=== PATIENT | male | born 1935 | race Asian ===

== ENCOUNTER 2017-05-02 05:48 | Day surgery (SDC) | payer OTHER ==
[~2017-05-02] VITALS: Ht 170.2 cm; Wt 69.5 kg
[~2017-05-02 05:48] MED LIST: ALBU8.5H8 IH; FLUT16H NASAL; SIMV10TA6 PO; [UNRECOGNIZED DRUG - REMARK] PO
[2017-05-02] MEDS ORDERED: LIDOCAINE HCL 2% 5 ML JELLY TP ONE (05:49)
[2017-05-02] MEDS ORDERED: LIDOCAINE HCL 4% 50 ML SOLUTION TP ONE (05:49)
[2017-05-02] MEDS ORDERED: ALBUTEROL SULFATE 2.5 MG/0.5 ML NEB SOLUTION NEB ONE (05:49)
[2017-05-02] MEDS ORDERED: BENZOCAINE 20% 50 MCG/SPRAY 57 GM TP ONE (05:49)
[2017-05-02] MEDS ORDERED: SODIUM CHLORIDE 0.9% 1,000 ML IV ONE ×2 (05:59→06:00)
[2017-05-02] MEDS ORDERED: FINA5TAB41 PO (06:55)
[2017-05-02] MEDS ORDERED: SIMV-259 PO (06:55)
[2017-05-02] MEDS ORDERED: DOCU250C91 PO (06:55)
[2017-05-02] MEDS ORDERED: MONT10TA21 PO (06:55)
[2017-05-02] MEDS ORDERED: TAMS0.4C32 PO (06:55)
[2017-05-02] MEDS ORDERED: NAPR-58 PO (06:55)
[2017-05-02] MEDS ORDERED: GABA-529 PO (06:55)
[2017-05-02] MEDS ORDERED: BENA1TAB17 PO (06:55)
[2017-05-02] MEDS ORDERED: D-ME118S13 PO (06:55)
[2017-05-02] MEDS ORDERED: ESCI10TA PO (06:55)
[2017-05-02] MEDS ORDERED: POSA100T PO (06:55)
[2017-05-02] MEDS ORDERED: BACL10TA PO (06:55)
[2017-05-02] MEDS ORDERED: DONE10TA8 PO (06:55)
[2017-05-02] MEDS ORDERED: OS500 PO (06:55)
[2017-05-02] MEDS ORDERED: FentaNYL CITRATE-PF 100 MCG/2 ML VIAL ONE (07:27)
[2017-05-02] MEDS ORDERED: MIDAZOLAM HCL 2 MG/2 ML VIAL ONE (07:27)
[2017-05-02] MEDS ORDERED: MethylPREDNISolone SOD SUCC 125 MG/2 ML VIAL IVP ONE (08:45)
[2017-05-02] MEDS ORDERED: MethylPREDNISolone SOD SUCC 125 MG/2 ML VIAL ONE (08:54)
[2017-05-02] MEDS ORDERED: OXYGEN THERAPY IH SCH (20:00)
== END 2017-05-02 11:07 | disposition home or self-care (01) ==
LOC: SURGERY 05:48
PROVIDERS: ATTEND Internal Medicine Critical Care Medicine
DX: J38.4 Edema of larynx (principal); B37.0 Candidal stomatitis; J44.9 Chronic obstructive pulmonary disease, unspecified; E78.00 Pure hypercholesterolemia, unspecified; F32.9 Major depressive disorder, single episode, unspecified; M19.90 Unspecified osteoarthritis, unspecified site; K21.9 Gastro-esophageal reflux disease without esophagitis; Z87.891 Personal history of nicotine dependence; Z98.890 Other specified postprocedural states; Z79.899 Other long term (current) drug therapy
CPT/HCPCS: 31623; 31624; 71010; 87015 ×2; 87070; 87101; 87205; 87220; 88108; 88312; 93005; J2250; J2930; J3010; J7030

== ENCOUNTER 2019-01-12 05:35 | Day surgery (SDC) | payer OTHER ==
[~2019-01-12] VITALS: Ht 170.2 cm; Wt 70.9 kg
[~2019-01-12 05:35] MED LIST changes: -ALBU8.5H8 IH; +BACL10TA PO; +BENA1TAB17 PO; +DOCU250C91 PO; +DONE10TA8 PO; +ESCI10TA PO; +FINA5TAB41 PO; -FLUT16H NASAL; +GABA-529 PO; +MONT10TA21 PO; +NAPR-1025 PO; +OS500 PO; +POSA100T PO; +PROM118S4 PO; +SIMV-259 PO; +TAMS0.4C32 PO; -[UNRECOGNIZED DRUG - REMARK] PO
[2019-01-12] MEDS ORDERED: LIDOCAINE 2% 5 ML JELLY TP ONE (05:36)
[2019-01-12] MEDS ORDERED: LIDOCAINE 4% 50 ML SOLUTION TP ONE (05:36)
[2019-01-12] MEDS ORDERED: ALBUTEROL SULFATE 2.5 MG/0.5 ML NEB SOLUTION NEB ONE (05:36)
[2019-01-12] MEDS ORDERED: BENZOCAINE 20% 50 MCG/SPRAY 57 GM TP ONE (05:36)
[2019-01-12] MEDS ORDERED: SODIUM CHLORIDE 0.9% 1,000 ML IV ONE ×2 (06:30→07:14)
[2019-01-12] MEDS ORDERED: MIDAZOLAM HCL 2 MG/2 ML VIAL ONE (08:00)
[2019-01-12] MEDS ORDERED: FentaNYL CITRATE-PF 100 MCG/2 ML VIAL ONE (08:01)
[2019-01-12] MEDS ORDERED: MethylPREDNISolone SOD SUCC 125 MG/2 ML VIAL IVP ONE (08:30)
[2019-01-12] MEDS ORDERED: OXYGEN THERAPY IH SCH (20:00)
== END 2019-01-12 10:30 | disposition home or self-care (01) ==
LOC: SURGERY 05:35
PROVIDERS: ATTEND Internal Medicine Critical Care Medicine
DX: J38.4 Edema of larynx (principal); B37.0 Candidal stomatitis; J98.8 Other specified respiratory disorders; J44.9 Chronic obstructive pulmonary disease, unspecified; M19.90 Unspecified osteoarthritis, unspecified site; F34.9 Persistent mood [affective] disorder, unspecified; Z87.891 Personal history of nicotine dependence; Z79.899 Other long term (current) drug therapy; Z98.890 Other specified postprocedural states
CPT/HCPCS: 31623; 31624; 71045; 87015; 87070; 87077; 87101; 87186; 87205; 87206; 87220; 88108; 88312; J2250; J2930; J3010; J7030

== ENCOUNTER 2020-02-20 06:16 | Day surgery (SDC) | payer OTHER ==
[2020-02-19 12:15] LABS: COVID AG,FIA SOURCE NASOPHARYNGEAL
[~2020-02-20] VITALS: Ht 170.2 cm; Wt 70.0 kg
[~2020-02-20 06:16] MED LIST changes: -BACL10TA PO; -BENA1TAB17 PO; +BUDE10.2 IH; +CALC-1238 PO; -DOCU250C91 PO; -DONE10TA8 PO; +DULO30CA96 PO; -ESCI10TA PO; +FINA-27 PO; -FINA5TAB41 PO; +GABA-1181 PO; -GABA-529 PO; +HYDR-1475 PO; +LEVO-72 PO; +MONT-35 PO; -MONT10TA21 PO; -NAPR-1025 PO; +OMEP20 PO; -OS500 PO; -POSA100T PO; +PRED10 PO; -PROM118S4 PO; +SENN8.8S6 PO; -SIMV-259 PO; -SIMV10TA6 PO; +TAMS-13 PO; -TAMS0.4C32 PO
[2020-02-20] MEDS ORDERED: SODIUM CHLORIDE 0.9% 1,000 ML ONE (06:25)
[2020-02-20] MEDS ORDERED: SODIUM CHLORIDE 0.9% 1,000 ML IV ONE (06:30)
[2020-02-20] MEDS ORDERED: MIDAZOLAM HCL 2 MG/2 ML VIAL ONE (07:40)
[2020-02-20] MEDS ORDERED: FentaNYL CITRATE-PF 100 MCG/2 ML VIAL ONE (07:41)
[2020-02-20] MEDS ORDERED: MethylPREDNISolone SOD SUCC 125 MG/2 ML VIAL IVP ONE (08:45)
[2020-02-20] MEDS ORDERED: MethylPREDNISolone SOD SUCC 125 MG/2 ML VIAL ONE (09:01)
[2020-02-20] MEDS ORDERED: OXYGEN THERAPY IH SCH (20:00)
== END 2020-02-20 10:05 | disposition home or self-care (01) ==
LOC: SURGERY 06:16
PROVIDERS: ATTEND Internal Medicine Critical Care Medicine
DX: J38.4 Edema of larynx (principal); B37.0 Candidal stomatitis; Z87.442 Personal history of urinary calculi; Z87.891 Personal history of nicotine dependence; Z98.890 Other specified postprocedural states
CPT/HCPCS: 31623; 31624; 71045; 87015; 87070; 87077; 87101; 87205; 87206; 87220; 87426; 88108; 88312; J2250; J2930; J3010; J7030; 87107